=== PATIENT | female | born 1955 | race Two or more races ===

== ENCOUNTER 2024-01-30 15:00 | Emergency (ER) | payer OTHER ==
[~2024-01-30] VITALS: Ht 157.5 cm; Wt 56.8 kg
[2024-01-30] MEDS ORDERED: LISI-893 PO ×2 (15:10→17:40)
[2024-01-30] MEDS ORDERED: ATOR40TA28 PO ×2 (15:10→17:40)
[2024-01-30] MEDS ORDERED: GLIP5TAB16 PO ×2 (15:10→17:40)
[2024-01-30] MEDS ORDERED: OMEP20 PO ×2 (15:10→17:40)
[2024-01-30 15:17] LABS: COVID AG,FIA SOURCE NASAL SWAB
[2024-01-30 15:35] LABS: INFLUENZA TYPE A NEGATIVE FOR TYPE A (NEGATIVE); INFLUENZA TYPE B NEGATIVE FOR TYPE B (NEGATIVE); SARS-COV2 (COVID) ANTIGEN,FIA Negative (Negative)
[2024-01-30 17:19] VITALS: BP 150/89; PULSE 73; RESP 18; TEMP 99.1; O2SAT 97
[2024-01-30] MEDS ORDERED: AZIT250T9 PO (17:40)
== END 2024-01-30 18:15 | disposition home or self-care (01) ==
LOC: EMS 15:00
DX: J98.4 Other disorders of lung (principal); E11.36 Type 2 diabetes mellitus with diabetic cataract; E78.00 Pure hypercholesterolemia, unspecified; I10 Essential (primary) hypertension; K21.9 Gastro-esophageal reflux disease without esophagitis; Z20.822 Contact with and (suspected) exposure to COVID-19
CPT/HCPCS: 71045; 82962; 87804; 99284